=== PATIENT | female | born 1935 ===

== ENCOUNTER 2017-11-10 20:40 | Inpatient (IN) | payer MEDICARE, BC ==
--- NOTE | 2017-11-10 21:21 | ED PDOC ---
Arrival/HPI - General Chief Complaint: Abnormal Labs Time Seen by Provider: 11/10/17 20:49 Historian: Patient - History of Present Illness Narrative History of Present Illness (Text): 11/10/17 21:20 Eloisa Moon is an 82 year old female, whose past medical history includes recent left hip surgery, hypertension, asthma, depression, migraines, breast cancer in remission s/p right mastectomy, who presents to the emergency department transferred from custodial accompanied by daughter for abnormal labwork. Patient noted to have low hemoglobin, approximately 7.7. Patient recently [place] [facility] [place] received 2 blood transfusions following the surgery. Patient denies any chest pain, shortness of breath, abdominal pain, nausea, vomiting, diarrhea, headache, dizziness, or any other complaints. Symptom Onset: Gradual Symptom Course: Unchanged Activities at Onset: Light Context: Home (correction) Past Medical History - Provider Review Nursing Documentation Reviewed: Yes - Cardiac Hx Hypertension: Yes - Pulmonary Hx Respiratory Disorders: No - Neurological Hx Neurological Disorder: No - HEENT Hx HEENT Disorder: No - Renal Hx Renal Disorder: No - Endocrine/Metabolic Hx Endocrine Disorders: No - Hematological/Oncological Hx Anemia: Yes - Integumentary Hx Dermatological Disorder: No - Musculoskeletal/Rheumatological Hx Musculoskeletal Disorders: Yes - Psychiatric Hx Depression: No Hx Emotional Abuse: No Hx Physical Abuse: No Hx Substance Use: No - Anesthesia Hx Anesthesia: No - Suicidal Assessment Feels Threatened In Home Enviroment: No Family/Social History - Physician Review Nursing Documentation Reviewed: Yes Family/Social History: Unknown Family HX Smoking Status: Never Smoked Hx Alcohol Use: No Hx Substance Use: No Hx Substance Use Treatment: No Allergies/Home Meds Allergies/Adverse Reactions: Allergies Penicillins Allergy (Verified 11/10/17 21:16) SWELLING shellfish derived Allergy (Verified 11/10/17 21:16) SWELLING Sulfa (Sulfonamide Antibiotics) Allergy (Verified 11/10/17 21:16) SHORTNESS OF BREATH egg Adverse Reaction (Verified 11/10/17 21:15) SWELLING Home Medications: Home Meds Medication Instructions Recorded Confirmed Acetaminophen [Tylenol 325mg tab] 650 mg PO PRN PRN 11/10/17 11/10/17 Albuterol/Ipratropium [Duoneb 3 1 inh NEB PRN PRN 11/10/17 11/10/17 mg/0.5 mg (3 ml) UD] Apixaban [Eliquis] 2.5 mg PO DAILY 11/10/17 11/10/17 Aztreonam [Azactam] 1 gm IVPB Q8H 11/10/17 11/10/17 Celecoxib [Celebrex] 200 mg PO DAILY 11/10/17 11/10/17 Ferrous Sulfate 325 mg PO DAILY 11/10/17 11/10/17 Levomefolate Calcium [Elfolate] 15 mg PO DAILY 11/10/17 11/10/17 Pantoprazole [Protonix EC Tab] 40 mg PO DAILY 11/10/17 11/10/17 Sertraline [Zoloft] 50 mg PO DAILY 11/10/17 11/10/17 Vancomycin/0.9 % Sod Chloride 1 gm IVPB DAILY 11/10/17 11/10/17 [Vancomycin 1 G/100Ml-0.9% NaCl] amLODIPine [Norvasc] 10 mg PO DAILY 11/10/17 11/10/17 levoFLOXacin 750 mg in D5W 750 mg IVPB DAILY 11/10/17 11/10/17 [Levaquin 750MG] oxyCODONE/Acetaminophen [Percocet 1 tab PO Q4H PRN 11/10/17 11/10/17 5/325 mg Tab] Review of Systems - Physician Review All systems were reviewed & negative as marked: Yes - Review of Systems Constitutional: Normal. absent: Fevers Eyes: Normal ENT: Normal Respiratory: Normal. absent: SOB, Cough Cardiovascular: Normal. absent: Chest Pain Gastrointestinal: Normal. absent: Abdominal Pain, Diarrhea, Nausea, Vomiting Genitourinary Female: Normal Musculoskeletal: Normal Skin: Normal Neurological: Normal. absent: Headache, Dizziness Endocrine: Normal Hemo/Lymphatic: Other (+low hemoglobin) Psychiatric: Normal Physical Exam Vital Signs Reviewed: Yes Vital Signs Temp Pulse Resp BP Pulse Ox 11/11/17 00:15 72 18 118/66 95 11/10/17 22:40 73 19 132/70 97 11/10/17 20:40 98.2 F 75 20 142/76 98 Temperature: Afebrile Blood Pressure: Normal Pulse: Regular Respiratory Rate: Normal Appearance: Positive for: Well-Appearing, Non-Toxic, Comfortable Pain Distress: None Mental Status: Positive for: Alert and Oriented X 3 - Systems Exam Head: Present: Atraumatic, Normocephalic Pupils: Present: PERRL Extroacular Muscles: Present: EOMI Conjunctiva: Present: Other (Pale conjunctiva) Mouth: Present: Moist Mucous Membranes Neck: Present: Normal Range of Motion Respiratory/Chest: Present: Clear to Auscultation, Good Air Exchange. No: Respiratory Distress, Accessory Muscle Use Cardiovascular: Present: Regular Rate and Rhythm, Normal S1, S2. No: Murmurs Abdomen: No: Tenderness, Distention, Peritoneal Signs Back: Present: Normal Inspection Upper Extremity: Present: Normal Inspection. No: Cyanosis, Edema Lower Extremity: Present: Normal Inspection. No: Edema Neurological: Present: GCS=15, CN II-XII Intact, Speech Normal Skin: Present: Warm, Dry, Normal Color. No: Rashes Psychiatric: Present: Alert, Oriented x 3, Normal Insight, Normal Concentration Medical Decision Making ED Course and Treatment: 11/10/17 21:20 Impression: 82 year old female sent from custodial brought in for low hemoglobin. Differential Diagnosis included but are not limited to: anemia Plan: -- Labs, blood type and screen -- EKG -- Reassess and disposition Progress Notes: Reviewed EKG, NSR at [address]pm[address] Non-specific ST/T wave changes. 11/10/17 23:05 Reviewed labs, hgb:7.5. Will transfuse pt. 11/10/17 23:[address] Hummel, who is aware and agrees with plan. Accepts pt in to her service. Pt will be admitted to remote telemetry for anemia. - Lab Interpretations Lab Results: 11/10/17 21:39 11/10/17 21:39 Lab Results 11/10/17 22:21: Blood Type Confirm O POSITIVE 11/10/17 21:39: Blood Type O POSITIVE, Antibody Screen Positive, Antibody Identification Anti Jka, BAM, Poly Interpret Negative, Crossmatch See Detail, BBK History Checked No verified bt 11/10/17 21:39: WBC 9.3, RBC 2.97 L, Hgb 7.5 L, Hct 23.9 L, MCV 80.5, MCH 25.3, MCHC 31.4, RDW 18.8 H, Plt Count 448, MPV 8.3 11/10/17 21:39: Sodium 141, Potassium 3.9, Chloride 108 H, Carbon Dioxide 22, Anion Gap 15, BUN 19, Creatinine 1.0, Est GFR ( Amer) > 60, Est GFR (Non- Af Amer) 53, Random Glucose 104, Calcium 9.3, Total Bilirubin < 0.1 L, AST 26, ALT 32, Alkaline Phosphatase 121, Total Protein 6.6, Albumin 3.2, Globulin 3.4, Albumin/Globulin Ratio 1.0 L 11/10/17 21:39: PT 15.0 H, INR 1.31 H, APTT 32.2 I have reviewed the lab results: Yes - EKG Interpretation Interpreted by ED Physician: Yes Type: 12 lead EKG - Medication Orders Current Medication Orders: Discontinued Medications Acetaminophen (Tylenol 325mg Tab) 650 mg PO Q4H PRN PRN Reason: Pain, Mild (1-3) Last Admin: 11/11/17 23:54 Dose: 650 mg [facility] Pain/Vitals Document 11/11/17 23:54 KOPPS (Rec: 11/11/17 23:55 KOPPS [id number]) Pain Reassessment Is This A Pain ReAssessment? No Sleep Is patient sleeping during reassessment? No Presence of Pain Presence of Pain Yes Pain Scale Used Pain Scale Used Numeric Location Left, Right or Bilateral Right Upper or Lower Upper Pain Location Body Site Hip Description Constant Intensity 3 Scale Used Numeric Pain Behavior Guarding Aggravating Factors ADL's Changing Position Exercise/Activity Alleviating Factors Medication Re-Assess: [facility] Pain/Vitals Document 11/12/17 00:54 KOPPS (Rec: 11/12/17 02:30 KOPPS [id number]) Pain Reassessment Is This A Pain ReAssessment? Yes Sleep Is patient sleeping during reassessment? No Presence of Pain Presence of Pain No Alteplase, Recombinant (Cathflo 2 Mg Inj) 2 mg IV ONCE ONE Stop: 11/11/17 10:57 Last Admin: 11/11/17 11:09 Dose: 2 mg eMAR Start Stop Document 11/11/17 11:09 (Rec: 11/11/17 11:10 [id number] Intravenous Solution Start Date 11/11/17 Start Time 11:09 End Date 11/11/17 End time 11:11 Total Infusion Time 2 Apixaban (Eliquis) 2.5 mg PO DAILY RUTHY PRN Reason: Protocol Last Admin: 11/12/17 09:03 Dose: 2.5 mg Furosemide (Lasix) 20 mg IVP PRN PRN PRN Reason: prior to blood transfusion Last Admin: 11/11/17 10:20 Dose: 20 mg MAR Blood Pressure Document 11/11/17 10:20 VM (Rec: 11/11/17 10:20 VM [id number]) Blood Pressure Blood Pressure (100/60-150/90) 144/72 IVP Administration Document 11/11/17 10:20 VM (Rec: 11/11/17 10:20 VM [id number]) Charges for Administration # of IVP Administrations 1 Aztreonam (Azactam 1 Gm) 100 mls @ 100 mls/hr IVPB Q8H RUTHY Stop: 11/11/17 19:14 Last Admin: 11/12/17 02:37 Dose: 100 mls/hr eMAR Start Stop Document 11/12/17 02:37 KOPPS (Rec: 11/12/17 02:37 KOPPS [id number]) Intravenous Solution Start Date 11/12/17 Start Time 02:37 End Date 11/12/17 End time 03:37 Total Infusion Time 60 Vancomycin HCl (Vancomycin 1gm) 1 gm in 250 mls @ 167 mls/hr IVPB DAILY [facility] Last Admin: 11/12/17 09:03 Dose: 167 mls/hr eMAR Start Stop Document 11/12/17 09:03 VM (Rec: 11/12/17 09:03 [id number]) Intravenous Solution Start Date 11/12/17 Start Time 09:03 End Date 11/12/17 End time 10:33 Total Infusion Time 90 Levofloxacin/Dextrose (Levaquin 750mg) 750 mg IVPB DAILY RUTHY PRN Reason: Protocol Last Admin: 11/12/17 10:43 Dose: 750 mg eMAR Start Stop Document 11/12/17 10:43 VM (Rec: 11/12/17 10:44 VM [id number]) Intravenous Solution Start Date 11/12/17 Start Time 10:43 End Date 11/12/17 End time 11:43 Total Infusion Time 60 Morphine Sulfate (Morphine) 4 mg IVP STAT STA Stop: 11/10/17 22:58 Last Admin: 11/10/17 23:25 Dose: 4 mg [facility] Pain Assessment Document 11/10/17 23:25 JOL (Rec: 11/11/17 00:03 JO [id number]) Pain Reassessment Is this a pain reassessment? No Sleep Is patient sleeping during reassessment? No Presence of Pain Presence of Pain Yes Pain Scale Used Pain Scale Used Numeric Location Pain Location Body Site Back Description Intensity of Pain at present 7 Pain Behavior Moaning Crying Restlessness Facial Grimacing IVP Administration Document 11/10/17 23:25 JOL (Rec: 11/11/17 00:03 JOL [id number]) Charges for Administration # of IVP Administrations 1 Non-Formulary Medication (Aztreonam [Azactam]) 1 gm IVPB Q8H RUTHY Non-Formulary Medication (Vancomycin/0.9 % Sod Chloride [Vancomycin 1 G/100ml- 0.9% Nacl]) 1 gm IVPB DAILY RUTHY Ondansetron HCl (Zofran Inj) 4 mg IVP ONCE ONE Stop: 11/11/17 00:10 Last Admin: 11/11/17 00:12 Dose: Oxycodone/Acetaminophen (Percocet 5/325 Mg Tab) 1 tab PO STAT STA Stop: 11/12/17 02:55 Last Admin: 11/12/17 03:08 Dose: 1 tab [facility] Pain Assessment Document 11/12/17 03:08 KOPPS (Rec: 11/12/17 03:09 KOPPS [id number]) Pain Reassessment Is this a pain reassessment? No Sleep Is patient sleeping during reassessment? No Presence of Pain Presence of Pain Yes Pain Scale Used Pain Scale Used Numeric Location Left, Right or Bilateral Bilateral Upper or Lower Upper Pain Location Body Site Back Description Description Constant Intensity of Pain at present 6 Pain Behavior Moaning Aggravating Factors ADL's Changing Position Exercise/Activity Alleviating Factors/Management Medication Techniques Alleviating Factors Medication Re-Assess: [facility] Pain Assessment Document 11/12/17 04:08 KOPPS (Rec: 11/12/17 04:55 KOPPS [id number]) Pain Reassessment Is this a pain reassessment? Yes Sleep Is patient sleeping during reassessment? No Presence of Pain Presence of Pain No Pain Scale Used Pain Scale Used Numeric Oxycodone/Acetaminophen (Percocet 5/325 Mg Tab) 1 tab PO Q6H PRN PRN Reason: Pain, moderate (4-7) Stop: 11/15/17 08:17 Pantoprazole Sodium (Protonix Ec Tab) 40 mg PO DAILY RUTHY Last Admin: 11/12/17 09:03 Dose: Not Given Non-Admin Reason: Patient Refused - Scribe Statement The provider has reviewed the documentation as recorded by the Kym Vaz Provider Scribe Attestation: All medical record entries made by the Aceibe were at my direction and personally dictated by me. I have reviewed the chart and agree that the record accurately reflects my personal performance of the history, physical exam, medical decision making, and the department course for this patient. I have also personally directed, reviewed, and agree with the discharge instructions and disposition. Disposition/Present on Arrival - Present on Arrival Any Indicators Present on Arrival: No History of DVT/PE: No History of Uncontrolled Diabetes: No Urinary Catheter: No History of Decub. Ulcer: No History Surgical Site Infection Following: None - Disposition Have Diagnosis and Disposition been Completed?: Yes Diagnosis: Anemia Disposition: HOSPITALIZED Disposition Time: 23:30 Condition: STABLE
[2017-11-10 21:44] LABS: HEMOGLOBIN 7.5 g/dL (12.0-16.0); MEAN CELL VOLUME 80.5 fl (80.0-105.0); MEAN CORPUSCULAR HEMOGLOBIN 25.3 pg (25.0-35.0); MEAN CORPUSCULAR HGB CONC 31.4 g/dl (31.0-37.0); MEAN PLATELET VOLUME 8.3 fl (7.0-11.0); RBC 2.97 10^6/uL (3.5-6.1); RED CELL DISTRIBUTION WIDTH 18.8 % (11.5-14.5); WHITE BLOOD COUNT 9.3 10^3/ul (4.5-11.0)
[2017-11-10 21:54] LABS: ALBUMIN 3.2 g/dL (3.0-4.8); ALT/SGPT 32 U/L (7-56); AST/SGOT 26 U/L (14-36); BLOOD UREA NITROGEN 19 mg/dL (7-21); CALCIUM 9.3 mg/dL (8.4-10.5); GFR AFRICAN-AMERICAN > 60; GFR NON-AFRICAN AMERICAN 53
[2017-11-10 22:15] LABS: INR 1.31 (0.93-1.08); PARTIAL THROMBOPLASTIN TIME 32.2 Seconds (25.1-36.5)
[2017-11-11 01:54] VITALS: BMI 33.2
--- NOTE | 2017-11-11 09:49 | CARD ---
APPROVED REPORT EKG Measurement Heart [id number] <Conclusion> Normal sinus rhythm Q in 3 WNL
[2017-11-11] MEDS ORDERED: AZTREONAM 1 GM IVPB SCH (10:15)
[2017-11-11] MEDS ORDERED: SOD CHLORIDE IVPB SCH (10:15)
[2017-11-11] MEDS ORDERED: VANCOMYCIN IVPB SCH (10:15)
[2017-11-11] MEDS ORDERED: [UNRECOGNIZED DRUG - OTHER] IVPB SCH (10:15)
[2017-11-11 10:39] LABS: HEMOGLOBIN 8.1 g/dL (12.0-16.0); MEAN CELL VOLUME 82.5 fl (80.0-105.0); MEAN CORPUSCULAR HEMOGLOBIN 25.8 pg (25.0-35.0); MEAN CORPUSCULAR HGB CONC 31.3 g/dl (31.0-37.0); MEAN PLATELET VOLUME 8.1 fl (7.0-11.0); RBC 3.14 10^6/uL (3.5-6.1); RED CELL DISTRIBUTION WIDTH 18.7 % (11.5-14.5); WHITE BLOOD COUNT 8.7 10^3/ul (4.5-11.0)
[2017-11-11] MEDS: Pantoprazole 40 mg EC Tab PO SCH ×2 (11:18→11:24)
[2017-11-11] MEDS: Vancomycin 1gm in NS 250ml IVPB SCH (16:38)
[2017-11-11] MEDS: Aztreonam 1 Gm in NS 100mL 100 ML IVPB SCH (18:15)
[2017-11-11] MEDS: levoFLOXacin 750 mg in D5W 150 ML BAG IVPB SCH (20:46)
--- NOTE | 2017-11-12 02:13 | HP ---
HISTORY OF PRESENT ILLNESS: The patient is 82 years old, who was transferred from [facility] because of anemia. The patient had a fall in August and she has been working on that, but her pain got worse. She was taken to [facility] where she was found to have some fluid collection in her right hip joint space, aspirate was taken and she was sent to [facility] for rehab and to continue her antibiotic. Dr. Perez was following the patient in [facility]. At that point, had antibiotic prosthesis placed and later on the patient was transferred back to [facility] where she had revision of surgery done and had hip arthroplasty done and the patient was sent to [facility] for completion of course of antibiotic to treat for osteomyelitis. She has been on Azactam, vancomycin and Levaquin. I did follow up. When I saw the patient in [facility], her hemoglobin was 7.8. She was given dose of Epogen, has received 5 doses of Venofer, but her hemoglobin dropped to 7.7, so she was transferred to emergency room for blood transfusion. PAST MEDICAL HISTORY: The patient has significant past medical history for, 1. History of depression. 2. History of CA breast, status post right mastectomy many many years ago. 3. Chronic anemia. 4. Generalized osteoarthritis. 5. Hypertension. ALLERGIES: THE PATIENT IS ALLERGIC TO PENICILLIN, SHELLFISH, SULFA AND EGGS. MEDICATIONS: In the halfway, she is on Percocet. She is getting IV vancomycin, Levaquin 750 daily and Azactam every 8, Norvasc 10 mg daily, Eliquis 2.5 daily. SOCIAL HISTORY: Denies smoking or drinking. PHYSICAL EXAMINATION: GENERAL: She is awake, alert, oriented, communicative. VITAL SIGNS: She is afebrile, pulse 75, respirations 18, blood pressure 128/83. LUNGS: Bilateral good airflow. No rhonchi or crackle. HEART: S1 and S2 audible. ABDOMEN: Soft. Nontender. No rebound. No guarding. NEUROLOGIC: The patient is awake, alert, oriented, communicative. LABORATORY EXAM: WBC on admission , her hemoglobin was 7.5 with hematocrit of 23.9. After one blood transfusion, her WBC is 8.7, hemoglobin 8.1, hematocrit 25.9, platelet Of 396. Chemistry: Sodium 141, potassium 3.9, chloride 108, CO2 of 22, BUN 19, creatinine 1, blood sugar of 104. ASSESSMENT: 1. Symptomatic anemia. 2. Status post hip arthroplasty. 3. Hypertension. 4. Hyperlipidemia. PLAN: The patient will receive second blood transfusion. She will be given Levaquin 750 daily and vancomycin 1 every 12 and we will start her on Eliquis and we will follow up CBC, CMP in the a.m. If her blood count is above 9-10, she will be transferred back to [facility] tomorrow. Lorena Hummel MD
[2017-11-12] MEDS: Aztreonam 1 Gm in NS 100mL 100 ML IVPB SCH (02:37)
[2017-11-12] MEDS ORDERED: Oxycodone/Acetaminophen 5/325 mg Tab PO STA (02:54)
[2017-11-12 05:32] VITALS: O2SAT 99
[2017-11-12 07:07] LABS: BASO # 0.02 K/mm3 (0.0-2.0); BASO % 0.2 % (0.0-3.0); EOS # 0.3 (0.0-0.7); EOS % 2.8 % (1.5-5.0); GRAN # 6.57 (1.4-6.5); GRAN % 64.6 % (50.0-68.0); HEMOGLOBIN 8.8 g/dL (12.0-16.0); LYMPH # 2.1 (1.2-3.4); LYMPH % 20.8 % (22.0-35.0); MEAN CELL VOLUME 82.7 fl (80.0-105.0); MEAN CORPUSCULAR HEMOGLOBIN 26.3 pg (25.0-35.0); MEAN CORPUSCULAR HGB CONC 31.8 g/dl (31.0-37.0); MEAN PLATELET VOLUME 8.3 fl (7.0-11.0); MONO # 1.2 (0.1-0.6); MONO % 11.6 % (1.0-6.0); RBC 3.35 10^6/uL (3.5-6.1); RED CELL DISTRIBUTION WIDTH 18.3 % (11.5-14.5); WHITE BLOOD COUNT 10.2 10^3/ul (4.5-11.0)
[2017-11-12 07:30] LABS: ALB/GLOB RATIO 0.9 (1.1-1.8); ALT/SGPT 30 U/L (7-56); AST/SGOT 29 U/L (14-36); BLOOD UREA NITROGEN 16 mg/dL (7-21); CALCIUM 8.9 mg/dL (8.4-10.5); GFR AFRICAN-AMERICAN > 60; GFR NON-AFRICAN AMERICAN > 60
[2017-11-12] MEDS ORDERED: Oxycodone/Acetaminophen 5/325 mg Tab PO PRN (08:16)
[2017-11-12] MEDS: Pantoprazole 40 mg EC Tab PO SCH (09:03)
[2017-11-12] MEDS: Vancomycin 1gm in NS 250ml IVPB SCH (09:03)
[2017-11-12] MEDS: levoFLOXacin 750 mg in D5W 150 ML BAG IVPB SCH (10:43)
[2017-11-12 13:12] VITALS: BP 143/71; RESP 16; TEMP 98.2
[2017-11-12 15:30] VITALS: PULSE 75
--- NOTE | 2017-11-13 04:39 | DS ---
HISTORY OF PRESENT ILLNESS: The patient is an 82-year-old, who was sent from [facility] because of generalized weakness, dizziness on ambulation. She was found to be anemic with a hemoglobin of 7.5. The patient received two blood transfusions, doing well. No nausea, vomiting. No diarrhea. PHYSICAL EXAMINATION: GENERAL: She is afebrile. Pulse 69, respirations 16, blood pressure 143/71. LUNGS: Bilateral good airflow. No rhonchi or crackle. HEART: S1 and S2 audible. ABDOMEN: Soft, nontender. No rebound. No guarding. NEUROLOGIC: The patient is awake, alert, oriented, and communicative. LABORATORY EXAM: WBC is 7.2, hemoglobin 8.8, hematocrit 27.7, platelet of 377. Chemistry: Sodium 142, potassium 3.8, chloride 107, CO2 of 26, BUN 16, creatinine 0.8, blood sugar of 93. ASSESSMENT: 1. Symptomatic anemia. 2. Right hip reconstruction surgery. 3. [id number] diabetes. 4. Hypertension. 5. Hypothyroidism. 6. Right hip osteomyelitis. PLAN: The patient is being transferred back to [facility]. We will follow up her CBC, CMP. Lorena Hummel MD
== END 2017-11-12 15:58 | DRG 812 ==
LOC: ED 20:40 → ERH 23:30 → 3RSO 11-11 00:43
PROVIDERS: ADMIT Internal Medicine; ATTEND Internal Medicine
PROC: 30233N1 Transfusion of Nonautologous Red Blood Cells into Peripheral Vein, Percutaneous Approach (ICD-10-PCS; principal; 2017-11-11)
DX: D64.9 Anemia, unspecified (principal); M86.9 Osteomyelitis, unspecified; M86.8X8 Other osteomyelitis, other site; E03.9 Hypothyroidism, unspecified; E11.69 Type 2 diabetes mellitus with other specified complication; E78.5 Hyperlipidemia, unspecified; I10 Essential (primary) hypertension; J45.909 Unspecified asthma, uncomplicated; M15.9 Polyosteoarthritis, unspecified; Z79.01 Long term (current) use of anticoagulants; Z85.3 Personal history of malignant neoplasm of breast; Z90.11 Acquired absence of right breast and nipple; Z91.81 History of falling